=== PATIENT | male | born 1965 | race Caucasian/White ===

== ENCOUNTER 2016-08-19 07:21 | Emergency (ER) | payer BC ==
[2016-08-19 07:31] VITALS: BP 116/68
--- NOTE | 2016-08-19 07:52 | UC ---
Hand/Wrist HPI - HPI Summary HPI Summary: 51 yo left handed male s/p injury to LMF last PM while playing b-ball Unable to extend at DIP - History Of Current Complaint Chief Complaint: UCUpperExtremity Stated Complaint: FINGER INJURY Time Seen by Provider: 08/19/16 07:47 Hx Obtained From: Patient Onset/Duration: Sudden Onset Severity Initially: Moderate Severity Currently: Mild Pain Intensity: 3 Pain Scale Used: 0-10 Numeric Character Of Pain: Dull, Aching Aggravating Factor(s): Other - touch Alleviating: Rest Associated Signs And Symptoms: Positive: Swelling, Bruising Related History: Dominant Hand Left - Allergies/Home Medications Allergies/Adverse Reactions: Allergies Allergy/AdvReac Type Severity Reaction Status Date / Time No Known Allergies Allergy Verified 08/19/16 07:31 PMH/Surg Hx/FS Hx/Imm Hx Previously Healthy: Yes Endocrine History Of: Denies: Diabetes, Thyroid Disease Cardiovascular History Of: Denies: Cardiac Disorders, Hypertension Respiratory History Of: Denies: COPD, Asthma GI/ History Of: Denies: Ulcer - Surgical History Surgical History: None - Family History Known Family History: Positive: Hypertension - Social History Alcohol Use: Occasionally Substance Use Type: None Smoking Status (MU): Never Smoked Tobacco Review of Systems Constitutional: Negative Skin: Bruising Eyes: Negative ENT: Negative Respiratory: Negative Cardiovascular: Negative Gastrointestinal: Negative Genitourinary: Negative Motor: Negative Neurovascular: Negative Musculoskeletal: Calf Tenderness Neurological: Negative Psychological: Negative All Other Systems Reviewed And Are Negative: Yes Physical Exam Triage Information Reviewed: Yes Appearance: Well-Appearing, No Pain Distress, Well-Nourished Vital Signs: Initial Vital Signs Temp 97.5 F 08/19/16 07:25 Pulse 71 08/19/16 07:25 Resp 18 08/19/16 07:25 BP 116/68 08/19/16 07:25 Pulse Ox 97 08/19/16 07:25 Eyes: Positive: Conjunctiva Clear ENT: Positive: Hearing grossly normal. Negative: Nasal congestion, Trismus, Muffled/hoarse voice Neck: Positive: Supple Respiratory: Positive: Lungs clear, Normal breath sounds, No respiratory distress, No accessory muscle use Cardiovascular: Positive: RRR, No Murmur Musculoskeletal: Positive: Other: - see image Neurological: Positive: Alert Psychological Exam: Normal Skin: Negative: breakdown Procedures - Splinting Pre-Made Type: alimiform Hand-Made Type: DIP splinted in slight hyperextension Pre-Proc Neuro Vasc Exam: normal Post-Proc Neuro Vasc Exam: normal Hand/Wrist Course/Dx - Differential Dx/Diagnosis Provider Diagnoses: Mallet finger deformity left middle finger (no fracture) Discharge - Discharge Plan Condition: Stable Disposition: HOME Patient Education Materials: Jammed Finger (ED) Referrals: Maicol Lara MD [Medical Doctor] - As Soon As Possible (call today and make an appt) Additional Instructions: splint change splint with caution as discussed you have a MALLET FINGER DEFORMITY there is no associated fracture ice twice daily tylenol or advil if needed Images Hands: 1 - swollen/ecchynmotic/unable to actively extend at DIP
--- NOTE | 2016-08-19 08:23 | RAD ---
INDICATION: Trauma, mallet finger deformity. TECHNIQUE: 3 views of the left middle finger were obtained. FINDINGS: There is soft tissue swelling at the distal interphalangeal joint. There is extension at the proximal interphalangeal joint and extension flexion at the distal interphalangeal joint. No fracture is seen. Joint spaces appear maintained. IMPRESSION: MALLET FINGER DEFORMITY, NO FRACTURE IS SEEN.
== END 2016-08-19 08:45 | disposition home or self-care (01) ==
LOC: UCEAST 07:21
DX: M20.012 Mallet finger of left finger(s) (principal)
CPT/HCPCS: 73140; 99211; G0463